=== PATIENT | female | born 1995 | race Hispanic/Latino ===

== ENCOUNTER 2017-10-04 01:36 | Emergency (ER) | payer SELFPAY | END 2017-10-04 02:10 | disposition home or self-care (01) | LOC: EDH 01:36 | DX: Z91.14 Patient's other noncompliance with medication regimen (principal) | CPT/HCPCS: 99281 ==

== ENCOUNTER 2019-05-29 00:22 | Emergency (ER) | payer OTHER ==
[2019-05-29 00:52] LABS: APPEARANCE,URINE Clear (CLEAR); BILIRUBIN,URINE Negative (NEGATIVE); COLOR,URINE Yellow (YELLOW); GLUCOSE, URINE (UA) Negative (NEGATIVE); KETONES,URINE Negative (NEGATIVE); LEUKOCYTE ESTERASE ,URINE Trace (NEGATIVE); NITRATE,URINE Negative (NEGATIVE); OCCULT BLOOD,URINE Negative (NEGATIVE); PH,URINE 5.5 (5.0-8.0); PROTEIN,URINE Negative (NEGATIVE); UROBILINOGEN,URINE 0.2 mg/dL (0.2-1.0)
[2019-05-29 00:56] LABS: HCG,QUAL RESULT NEGATIVE (NEGATIVE)
[2019-05-29 01:04] LABS: BACTERIA,URINE Rare /HPF (None Seen); RBC,URINE 0-1 /HPF (0-1)
[2019-05-29 01:04] LABS: BASOPHILS % (AUTO) 0.9 % (0.0-5.0); EOSINOPHILS % (AUTO) 1.5 % (0.0-8.0); HEMATOCRIT 39.5 % (36-48); LYMPHOCYTES % (AUTO) 29.8 % (21.0-51.0); MEAN CORPUSCULAR HEMOGLOBIN 27.6 pg (27.0-33.0); MEAN CORPUSCULAR HGB CONC 33.1 g/dL (32.0-36.0); MEAN CORPUSCULAR VOLUME 83.5 fL (79-99); MONOCYTES % (AUTO) 5.2 % (3.0-13.0); NEUTROPHILS % (AUTO) 62.6 % (40.0-77.0); PLATELET COUNT (AUTO) 350 K/uL (130-400); RED BLOOD CELL COUNT(AUTO) 4.73 MIL/uL (4.00-5.50); RED CELL DISTRIBUTION WIDTH 15.3 % (11.0-15.5); WHITE BLOOD COUNT (AUTO) 13.5 K/uL (4.8-10.8)
[2019-05-29 01:12] LABS: CREATININE 0.9 mg/dL (0.5-1.5); POTASSIUM 3.7 mmol/L (3.5-5.1)
[2019-05-29 01:16] LABS: ALBUMIN 3.5 g/dL (3.5-5.0); BILIRUBIN,TOTAL 0.2 mg/dL (0.2-1.0); TOTAL PROTEIN, SERUM 8.3 g/dL (6.0-8.3)
[2019-05-29] MEDS ORDERED: METOCLOPRAMIDE 10 MG/2 ML VIAL ONE (01:18)
[2019-05-29] MEDS ORDERED: FAMOTIDINE/PF 20 MG/2 ML VIAL IV ONE (01:19)
[2019-05-29] MEDS ORDERED: ONDANSETRON HCL 4 MG/2 ML VIAL ONE (01:19)
[2019-05-29] MEDS ORDERED: LIDOCAINE HCL 2% VISCOUS 15 ML UDCUP ONE (01:22)
[2019-05-29] MEDS ORDERED: MAG HYDROX/AL HYDROX/SIMETH ES 30 ML SUSP UDCUP ONE (01:22)
== END 2019-05-29 02:16 | disposition home or self-care (01) ==
LOC: EDH 00:22
DX: K29.00 Acute gastritis without bleeding (principal)
CPT/HCPCS: 36415; 80053; 81001; 81025; 83690; 85025; 96374; 96375; 99284; J2405; J2765; J3490; 96372

== ENCOUNTER 2023-06-28 20:13 | Emergency (ER) | payer BC, OTHER ==
[~2023-06-28] VITALS: Ht 167.6 cm; Wt 137.0 kg
[2023-06-28] MEDS ORDERED: AMOX1TAB16 PO (21:40)
[2023-06-28] MEDS ORDERED: IBUP-1493 PO (21:40)
[2023-06-28 22:27] VITALS: BP 123/78; PULSE 78; RESP 16; O2SAT 98
== END 2023-06-28 22:30 | disposition home or self-care (01) ==
LOC: EDH 20:13
DX: L73.2 Hidradenitis suppurativa (principal); Z79.1 Long term (current) use of non-steroidal anti-inflammatories (NSAID)
CPT/HCPCS: 10060

== ENCOUNTER 2024-04-02 22:53 | Emergency (ER) | payer BC ==
[~2024-04-02] VITALS: Ht 167.6 cm; Wt 129.3 kg
[~2024-04-02 22:53] MED LIST: AMOX1TAB16 PO; IBUP-1493 PO
[2024-04-02] MEDS: LIDOCAINE HCL 1% 20 ML VIAL INJ STA (23:25)
[2024-04-02] MEDS ORDERED: CEPH500B PO (23:41)
[2024-04-02] MEDS: BACITRACIN 1 EACH PACKET TP ONE (23:52)
[2024-04-03] MEDS: DIPH,PERTUSS(ACELL),TET VAC/PF 0.5 ML VIAL IM ONE (00:02)
[2024-04-03 00:05] VITALS: BP 138/85; PULSE 76; RESP 16; TEMP 98.4; O2SAT 99
== END 2024-04-03 00:09 | disposition home or self-care (01) ==
LOC: EDH 22:53
DX: L02.415 Cutaneous abscess of right lower limb (principal); Z79.1 Long term (current) use of non-steroidal anti-inflammatories (NSAID); Z79.899 Other long term (current) drug therapy
CPT/HCPCS: 10060; 87070; 87076; 90471; 90715

== ENCOUNTER 2024-05-25 19:46 | Emergency (ER) | payer BC ==
[~2024-05-25] VITALS: Ht 165.1 cm; Wt 132.4 kg
[~2024-05-25 19:46] MED LIST changes: +CEPH500B PO
--- NOTE | 2024-05-25 19:49 | NUR ---
UA CUP PROVIDED
--- NOTE | 2024-05-25 20:01 | ERN ---
ED Note History of Present Illness Stated Complaint: RASH, FEVER Chief Complaint: Skin Rash/Abscess Time Seen by MD: 19:48 Dictation: PATIENT IS A 29-YEAR-OLD MORBIDLY OBESE FEMALE WITH A PAINFUL PERINEAL RASH HE HAS HAD FOR 3-4 DAYS. SHE DENIES FEVER CHILLS NAUSEA VOMITING STATES SHE IS UNSURE TO BE IN A DIABETIC. MOTHER WAS IN THE TRIAGE ROOM WITH ME AT THE TIME, AND WAS THERE WHEN I EXAMINED THE PATIENT'S RECTUM AND PERINEUM. Allergies: Coded Allergies: No Known Allergies (Unverified Allergy, Unknown, 05/29/19) Home Meds Active Scripts Cephalexin Monohydrate (Keflex) 500 Mg Cap, 500 MG PO QID for 7 Days, #28 CAP Prov:MAVERICK DE LEON MD 04/02/24 Ibuprofen (Motrin/Advil) 800 Mg Tab, 800 MG PO TID, #30 TAB Prov:DG ANGEL MD 06/28/23 Amoxicillin/Potassium Clav (Amox Tr-K Clv 875-125 mg Tab) 875 Mg-125 Mg Tablet, 1 EACH PO BID, #20 TAB Prov:DG ANGEL MD 06/28/23 Past Medical History Past Medical History: No Pertinent History Surgical History: None PSYCH History: no pertinent psych hx Family History: Negative Social History: Negative, Lives with family History: Not Applicable (WANT TO GO) LMP: May 20, 2024 RN Note Reviewed/Agreed w/PFSH: Yes Review of System Dictation CONSTITUTIONAL: NEGATIVE EXCEPT FOR HPI HEAD/FACE: NEGATIVE EXCEPT FOR HPI EENT: NEGATIVE EXCEPT FOR HPI RESPIRATORY: NEGATIVE EXCEPT FOR HPI GASTROINTESTINAL/ABDOMINAL: NEGATIVE EXCEPT FOR HPI GENITOURINARY: NEGATIVE EXCEPT FOR HPI PERINEAL RASH MUSCULOSKELETAL: NEGATIVE EXCEPT FOR HPI INTEGUMENTARY: NEGATIVE EXCEPT FOR HPI NEUROLOGICAL/PSYCH: NEGATIVE EXCEPT FOR HPI HEMATOLOGIC/LYMPHATIC: NEGATIVE EXCEPT FOR HPI ALL SYSTEMS NEGATIVE, EXCEPT NOTED ABOVE. 13 POINT REVIEW OF SYSTEMS ASSESSED AND ALL NEGATIVE EXCEPT FOR ABOVE. YEARS AGO Initial Vital Sign VS Vital Signs Date Time Temp Pulse Resp B/P (MAP) Pulse Ox O2 Delivery O2 Flow Rate FiO2 05/25/24 19:47 100.0 122 20 129/84 99 Room Air 05/25/24 21:00 0 21 Physical Exam Dictation VITAL SIGNS REVIEWED PATIENT'S MOTHER IN ROOM WITH THE EXAM. GENERAL APPEARANCE: ALERT, ORIENTED X 3, MODERATE ACUTE DISTRESS, WELL DEVELOPED, NOURISHED. MORBIDLY OBESE HEAD AND FACE: NON-TRAUMATIC. EYES: PERRL, PINK CONJUNCTIVAS, EYELID NO TRAUMA, ANTERIOR CHAMBER WITH ARCUS SENILIS. EARS: PINNAS INTACT AND NO SIGNS OF TRAUMA OR ERYTHEMA EAR CANALS CLEAR AND NO DISCHARGE TM NO ERYTHEMA NOSE: NO DISCHARGE, NO BLEEDING. OROPHARYNX: MOUTH NORMAL, TONGUE PINK, PHARYNX CLEAR,NO ERYTHEMA, TONSILS NO EXUDATES, NO ABSCESSES NOTED, MUCOUS MEMBRANE MOIST NECK: SUPPLE, NON-TENDER, NO THYROMEGALY, NO MASSES, NO JVD, NO BRUITS BREAST:DEFERRED CHEST:NO TENDERNESS, NO CREPITUS, NO PARADOXICAL MOVEMENT, NO RETRACTIONS LUNGS:CLEAR, WELL-VENTILATED, SYMMETRIC, NO RALES, NO WHEEZING, NO RHONCHI, NO STRIDOR, GOOD BREATH SOUNDS BILATERALLY HEART: REGULAR RATE, REGULAR RHYTHM, NO MURMUR, NO GALLOPS VASCULAR: NO PERIPHERAL EDEMA, ABDOMEN: SOFT, POSITIVE BOWEL SOUNDS, NONDISTENDED, NO GUARDING, NONTENDER, NO REBOUND, NO MASSES NO HEPATOMEGALY, NO SPLENOMEGALY, NO FRANCOIS'S SIGN, NO HERNIAS. RECTAL: DEFERRED PERIRECTAL RASH NO INDURATION NO FLUCTUANCE GENITAL: DEFERRED. NEUROLOGICAL: NORMAL SPEECH, MOTOR FUNCTION INTACT, SENSORY FUNCTION INTACT MUSCULOSKELETAL: NECK NONTENDER, FULL RANGE OF MOTION, BACK NONTENDER, FULL RANGE OF MOTION, EXTREMITIES: NONTENDER, FULL RANGE OF MOTION SKIN: COLOR PINK, DRY, NO TURGOR, NO RASH, NO LACERATIONS, NO ABRASIONS, NO CONTUSIONS. LYMPHATIC: DEFERRED Results (Laboratory/Radiology) Laboratory/Radiology Laboratory Tests Test 05/25/24 20:45 White Blood Count 5.8 K/uL (4.8-10.8) Red Blood Count 4.96 MIL/uL (4.00-5.50) Hemoglobin 14.6 g/dL (12.0-16.0) Hematocrit 42.8 % (36-48) Mean Corpuscular Volume 86.3 fL (79-99) Mean Corpuscular Hemoglobin 29.4 pg (27.0-33.0) Mean Corpuscular Hemoglobin Concent 34.1 g/dL (32.0-36.0) Red Cell Distribution Width 13.4 % (11.0-15.5) Platelet Count 310 K/uL (130-400) Mean Platelet Volume 10.4 fL (7.5-10.5) Immature Granulocyte % (Auto) 0.3 % (0-1) Neutrophils (%) (Auto) 71.6 % (40.0-77.0) Lymphocytes (%) (Auto) 19.2 % (21.0-51.0) L Monocytes (%) (Auto) 7.6 % (3.0-13.0) Eosinophils (%) (Auto) 0.3 % (0.0-8.0) Basophils (%) (Auto) 1.0 % (0.0-5.0) Neutrophils # (Auto) 4.1 K/uL (1.8-7.7) Lymphocytes # (Auto) 1.1 K/uL (1.0-4.8) Monocytes # (Auto) 0.4 K/uL (0.1-1.0) Eosinophils # (Auto) 0.02 K/uL (0.00-0.70) Basophils # (Auto) 0.06 K/uL (0.00-0.20) Absolute Immature Granulocyte (auto 0.02 K/uL (0-1) Nucleated Red Blood Cells 0.0 % (0.0-0.19) Sodium Level 136 mmol/L (136-145) Potassium Level 3.7 mmol/L (3.5-5.1) Chloride Level 99 mmol/L (101-111) L Carbon Dioxide Level 27 mmol/L (21-32) Blood Urea Nitrogen 12 mg/dL (7-18) Creatinine 1.1 mg/dL (0.5-1.0) H Glomerular Filtration Rate Calc 70 mL/min (>90) Random Glucose 366 mg/dL (70-105) H Total Calcium 9.3 mg/dL (8.5-10.1) Serum Test, Qualitative NEGATIVE (NEGATIVE) Labs Reviewed?: Yes ED Course ED Course Orders Procedure Category Date Status Time Acetaminophen 500mg PHA 05/25/24 Complete Tab (Tylenol 500mg T 20:00 Cbc With Differential LAB 05/25/24 Complete 19:57 Basic Metabolic Panel LAB 05/25/24 Complete 19:57 Acetaminophen With PHA 05/25/24 Complete Codeine (Tylenol-Code 20:00 Insulin Regular, PHA 05/25/24 Complete Human 3ml (Humulin R 21:30 0.9%Nacl 1000ml (Ns PHA 05/25/24 Complete 1000ml) 21:30 Testing, LAB 05/25/24 Complete Serum Hcg 21:16 Current Medications Medications (Trade) Dose Ordered Sig/Charo Route PRN Reason Start Time Stop Time Status Last Admin Dose Admin Acetaminophen (TYLenol 500MG TAB) 1,000 mg ONCE ONCE PO 05/25/24 20:00 05/25/24 20:01 DC Acetaminophen/ Codeine Phosphate (TYLenol-coDEINE TAB) 2 tab ONCE ONCE PO 05/25/24 20:00 05/25/24 20:01 DC 05/25/24 20:34 Insulin Human Regular (humuLIN R 100 UNIT/ML 3ML) 15 unit ONCE ONCE IV 05/25/24 21:30 05/25/24 21:31 DC 05/25/24 21:48 Sodium Chloride 1,000 ml @ 0 mls/hr ONCE ONCE IV 05/25/24 21:30 05/25/24 21:31 DC 05/25/24 21:39 Vital Signs Date Time Temp Pulse Resp B/P (MAP) Pulse Ox O2 Delivery O2 Flow Rate FiO2 05/25/24 21:00 102.4 115 18 96/50 99 Room Air* 0 21 05/25/24 19:47 100.0 122 20 129/84 99 Room Air 2152, DISCUSSED PATIENT'S LAB FINDINGS AT LENGTH AND SHE IS AWARE SHE HAS A NEW ONSET DIAGNOSIS OF DIABETES. SHE IS AWARE THAT THE RASH IS FUNGAL, WE WILL BE TREATED WITH ANTIVIRALS, WE WILL BE PUT ON METFORMIN A 1000 MG P.O. B.I.D. WITH FOOD SHE STATES SHE WE WILL SEE HER PRIMARY CARE DOCTOR IN [place]. SHE STATES HER FATHER HAS A DIABETIC AND THAT SHE DOES NOT WANT TO HAVE ANY COMPLICATIONS AND WE WILL SEE HER DOCTOR TOMORROW Medical Decision Making MDM MEDICAL DISCHARGE MAKING BASED ON BASIC LABS AND PHYSICAL EXAMINATION. PATIENT HAS A 366 BLOOD SUGAR AND IS A NEW ONSET DIABETIC. RECEIVED1 L NORMAL SALINE AND15 UNITS HUMULIN REGULAR INSULIN. DISCHARGED HOME WITH METFORMIN1 G P.O. B.I.D. WE WILL BE GIVEN DIFLUCAN AND CLOTRIMAZOLE. ALSO SHE IS AWARE I WILL WRITE HER FOR A WEEK SO SHE CAN FOLLOW UP WITH HER DOCTOR. DX & DISP Disposition: Discharge Departure Impression: Primary Impression: New onset type 2 diabetes mellitus Additional Impression: Candidiasis of perineum Condition: Stable Scripts Clotrimazole (Clotrimazole) 1 % Cream..g. 1 APPL TP BID for 7 Days, #15 GM 0 Refills apply to affected area(s) Prov: YADIRA TIERNEY NP 05/25/24 Fluconazole (Diflucan) 200 Mg Tablet 1 TAB PO DAILY for 3 Days, #3 TAB 0 Refills Prov: YADIRA TIERNEY NP 05/25/24 Metformin HCl (Metformin HCl) 1,000 Mg Tablet 1 TAB PO BID for 30 Days, #60 TAB 0 Refills Prov: YADIRA TIERNEY NP 05/25/24 Additional Instructions: FOLLOW-UP WITH PRIMARY CARE PROVIDER IN 1 TO 2 DAYS. TAKE MEDICATIONS DIRECTED HERE IN THE EMERGENCY ROOM. OKAY TO CONTINUE HOME MEDICATIONS UNLESS OTHERWISE DISCUSSED DURING YOUR VISIT IN THE EMERGENCY ROOM TODAY. RETURN TO YOUR NEAREST EMERGENCY ROOM IF SYMPTOMS WORSEN OR IF THERE IS NO IMPROVEMENT. CALL 911 IF YOU NEED IMMEDIATE ASSISTANCE. TAKE TYLENOL OR MOTRIN [id number] NEEDED AND IF NO CONTRAINDICATIONS ARE PRESENT. INCREASE ORAL HYDRATION. A WOUND CULTURE OR URINE CULTURE WAS ORDERED HERE IN THE EMERGENCY ROOM DEPARTMENT PLEASE FOLLOW-UP WITH PRIMARY CARE PROVIDER AND ADVISE THEM TO GET REPEAT PORTS FROM OUR FACILITY. IF YOU HAD ANY JENSEN WRAP/SPLINTS THAT WERE APPLIED HERE, PLEASE DO NOT REMOVE THEM UNTIL YOU SEE YOUR PRIMARY CARE OR SPECIALTY. TAKE METFORMIN DIRECTED TWICE A DAY WITH MEALS. TAKE DIFLUCAN DIRECTED ONCE A DAY FOR THREE DAYS. APPLY CLOTRIMAZOLE TO CLEAN DRY SKIN3 TIMES A DAY FOR SEVEN DAYS NO WORK UNTIL 06/01/2024 AND CLEARED BY YOUR DOCTOR. Referrals: SELF,REFERRAL (PCP) Time of Disposition: 21:56 I have reviewed the case, and I agree with, Diagnosis and Plan YADIRA TIERNEY NP May 25, 2024 20:01
[2024-05-25] MEDS: acetaMINOPHEN 500 MG TABLET PO ONE (20:34)
[2024-05-25] MEDS: acetaMINOPHEN WITH coDEINE 1 TAB TAB PO ONE (20:34)
[2024-05-25 20:53] LABS: BASOPHILS # (AUTO) 0.06 K/uL (0.00-0.20); EOSINOPHILS # (AUTO) 0.02 K/uL (0.00-0.70); EOSINOPHILS % (AUTO) 0.3 % (0.0-8.0); HEMATOCRIT 42.8 % (36-48); IMMATURE GRANULOCYTE ABSOLUTE 0.02 K/uL (0-1); LYMPHOCYTES # (AUTO) 1.1 K/uL (1.0-4.8); LYMPHOCYTES % (AUTO) 19.2 % (21.0-51.0); MEAN CORPUSCULAR HEMOGLOBIN 29.4 pg (27.0-33.0); MEAN CORPUSCULAR HGB CONC 34.1 g/dL (32.0-36.0); MEAN CORPUSCULAR VOLUME 86.3 fL (79-99); MONOCYTES # (AUTO) 0.4 K/uL (0.1-1.0); MONOCYTES % (AUTO) 7.6 % (3.0-13.0); NEUTROPHILS # (AUTO) 4.1 K/uL (1.8-7.7); NEUTROPHILS % (AUTO) 71.6 % (40.0-77.0); PLATELET COUNT (AUTO) 310 K/uL (130-400); RED BLOOD CELL COUNT(AUTO) 4.96 MIL/uL (4.00-5.50); RED CELL DISTRIBUTION WIDTH 13.4 % (11.0-15.5); WHITE BLOOD COUNT (AUTO) 5.8 K/uL (4.8-10.8)
[2024-05-25 21:00] VITALS: BP 96/50; PULSE 115; RESP 18; TEMP 102.3; O2SAT 99
[2024-05-25 21:00] LABS: CREATININE 1.1 mg/dL (0.5-1.0); POTASSIUM 3.7 mmol/L (3.5-5.1)
[2024-05-25] MEDS: 0.9%NACL 1000ML 1,000 ML IV ONE (21:39)
[2024-05-25] MEDS: INSULIN humuLIN R 100 UNIT/ML 3ML IV ONE (21:48)
[2024-05-25] MEDS ORDERED: METF-446 PO (21:58)
[2024-05-25] MEDS ORDERED: CLOT15CR23 TP (21:58)
[2024-05-25] MEDS ORDERED: FLUC200T PO (21:58)
== END 2024-05-25 23:04 | disposition home or self-care (01) ==
LOC: EDH 19:46
DX: B37.31 Acute candidiasis of vulva and vagina (principal); E11.9 Type 2 diabetes mellitus without complications; Z79.1 Long term (current) use of non-steroidal anti-inflammatories (NSAID); Z79.84 Long term (current) use of oral hypoglycemic drugs; Z79.899 Other long term (current) drug therapy
CPT/HCPCS: 99284; 96374; 80048; 84703; 85025; 82948; 36415; J1815; J7030

== ENCOUNTER 2024-05-29 21:10 | Emergency (ER) | payer BC ==
[~2024-05-29] VITALS: Ht 167.6 cm; Wt 126.1 kg
[~2024-05-29 21:10] MED LIST changes: +CLOT15CR23 TP; +FLUC200T PO; +METF-446 PO
[2024-05-29 21:20] VITALS: BP 110/72; PULSE 77; RESP 20; TEMP 98.3
[2024-05-29] MEDS: cefTRIAXone 1G VIAL IVPB ONE (22:11)
[2024-05-29] MEDS: AZITHROMYCIN 250 MG TABLET PO ONE (22:11)
[2024-05-29] MEDS: ondanSETRON 4MG INJ IVP ONE (22:12)
[2024-05-29] MEDS: morPHINE 4 MG SYG IVP ONE (22:12)
--- NOTE | 2024-05-29 22:26 | ERN ---
ED Note History of Present Illness Stated Complaint: VAGINAL RASH Chief Complaint: Skin Rash/Abscess Time Seen by MD: 21:28 Time Seen by Midlevel: 21:28 Dictation: The patient is a 21-year-old female with no past medical history who presents to the emergency department with complaints of pain in erythema to her rectal area onset a week ago. Patient reports she has been to multiple providers and has been receiving antifungal medication but reports no improvement. Patient denies any fevers. Patient does report having two sexual partners and states most of the time she uses protection. Patient denies any vaginal bleeding or discharge. Patient also reports a lesion to her pelvic area. Patient reports she went to [facility] yesterday and was discharged with antibiotics but reports she was unable to get them due to financial issues. Allergies: Coded Allergies: No Known Allergies (Unverified Allergy, Unknown, 05/29/19) Home Meds Active Scripts Clotrimazole (Clotrimazole) 1 % Cream..g., 1 APPL TP BID for 7 Days, #15 GM 0 Refills apply to affected area(s) Prov:YADIRA TIERNEY NP 05/25/24 Fluconazole (Diflucan) 200 Mg Tablet, 1 TAB PO DAILY for 3 Days, #3 TAB 0 Refills Prov:YADIRA TIERNEY NP 05/25/24 Metformin HCl (Metformin HCl) 1,000 Mg Tablet, 1 TAB PO BID for 30 Days, #60 TAB 0 Refills Prov:YADIRA TIERNEY NP 05/25/24 Cephalexin Monohydrate (Keflex) 500 Mg Cap, 500 MG PO QID for 7 Days, #28 CAP Prov:MAVERICK DE LEON MD 04/02/24 Ibuprofen (Motrin/Advil) 800 Mg Tab, 800 MG PO TID, #30 TAB Prov:DG ANGEL MD 06/28/23 Amoxicillin/Potassium Clav (Amox Tr-K Clv 875-125 mg Tab) 875 Mg-125 Mg Tablet, 1 EACH PO BID, #20 TAB Prov:DG ANGEL MD 06/28/23 Past Medical History Past Medical History: No Pertinent History Surgical History: None Family History: Negative Social History: Negative, Lives with family History: Not Applicable LMP: May 20, 2024 RN Note Reviewed/Agreed w/PFSH: Yes Review of System Dictation Constitutional: Negative for fever,chills, and weight loss Eyes: Negative for injury, pain,redness, and discharge ENT: Negative for injury,pain or swelling Cardiovascular: Negative for chest pain, palpitations, and edema Respiratory: Negative for shortness of breath, cough, and wheezing, Abdomen/GI: Negative for abdominal pain, nausea, vomiting, diarrhea, and constipation Back: Negative for injury and pain : Negative for injury, bleeding and discharge positive for rectal lesions MS/Extremity: Negative for injury and deformity Skin: Negative for rash, and discoloration Neuro: Negative for headache, weakness, numbness, tingling, and seizure Psych: Negative for suicide ideation, homicidal ideation, and hallucinations Initial Vital Sign VS Vital Signs Date Time Temp Pulse Resp B/P (MAP) Pulse Ox O2 Delivery O2 Flow Rate FiO2 05/29/24 21:20 98.2 77 20 110/72 98 Room Air Physical Exam Dictation Vital Signs reviewed General Appearance: Alert, oriented x 3, no acute distress, well developed, nourished. Head and Face: non-traumatic. Eyes: PERRL, pink conjunctivas, eyelid no trauma, anterior chamber with arcus senilis. Ears: Pinnas intact and no signs of trauma or erythema ear canals clear and no discharge TM no erythema Nose: No discharge, no bleeding. Oropharynx: Mouth normal, tongue pink. pharynx clear,no erythema, tonsils no exudates, no abscesses noted, mucous membrane moist Neck: Supple, non-tender, no thyromegaly, no masses, no JVD, no bruits Breast:Deferred Chest:No tenderness, no crepitus, no paradoxical movement, no retractions Lungs:Clear, well-ventilated, symmetric, no rales, no wheezing, no rhonchi, no stridor, good breath sounds bilaterally Heart: Regular rate, regular rhythm, no murmur, no gallops Vascular: no peripheral edema, Abdomen: Soft, positive bowel sounds, nondistended, no guarding, nontender, no rebound, no masses no hepatomegaly, no splenomegaly, no Flores's sign, no hernias. Rectal: Erythema surrounding rectum and in between buttocks, multiple ulcerated lesions, no drainage, tender to palpation, no abscess Genital: Small nontender ulceration to suprapubic area, multiple ingrown hair lesions Neurological: Normal speech, motor function intact, sensory function intact Musculoskeletal: Neck nontender, full range of motion, back nontender, full range of motion, Extremities: nontender, full range of motion Skin: Color pink, dry, no turgor, no rash, no lacerations, no abrasions, no contusions. Lymphatic: Deferred Results (Laboratory/Radiology) Laboratory/Radiology Laboratory Tests Test 05/29/24 22:09 05/29/24 22:24 Rapid Plasma Reagin NONREACTIVE (NONREACTIVE) Urine Color LIGHT-YELLOW (YELLOW) Urine Appearance CLOUDY (CLEAR) H Urine pH 5.5 (5.0-8.0) Urine Specific [place] 1.045 (1.001-1.031) Urine Protein NEGATIVE mg/dL (NEGATIVE) Urine Glucose (UA) >=1000 mg/dL (NEGATIVE) H Urine Ketones >=80 mg/dL (NEGATIVE) Urine Occult Blood +- (TRACE) (NEGATIVE) H Urine Nitrate NEGATIVE (NEGATIVE) Urine Bilirubin NEGATIVE mg/dL (NEGATIVE) Urine Urobilinogen 0.2 mg/dL (0.2-1.0) Urine Leukocyte Esterase 250 [place]/uL (NEGATIVE) H Urine RBC 11-25 /HPF (0-1) H Urine WBC 26-50 /HPF (0-1) H Urine Squamous Epithelial Cells MANY /HPF (0-2) Urine Bacteria RARE /HPF (None Seen) Urine HCG, Qualitative NEGATIVE (NEGATIVE) Labs Reviewed?: Yes ED Course ED Course Orders Procedure Category Date Status Time Urinalysis Profile LAB 05/29/24 Complete 21:36 ,Urine Test LAB 05/29/24 Complete 21:36 Chlamydia & Gc Pcr DANDY 05/29/24 In Process 21:57 Rapid Plasma Reagin LAB 05/29/24 Complete 21:57 Treponema Pallidum Ab LAB 05/29/24 In Process Igg-Tppa 21:57 Ceftriaxone 1g Vial PHA 05/29/24 Complete (Rocephine 1g Inj) 22:00 Azithromycin PHA 05/29/24 Complete (Zithromax) 22:00 Morphine 4mg Syg PHA 05/29/24 Complete (Morphine 4mg Syg) 22:00 Ondansetron 4mg Inj PHA 05/29/24 Complete (Zofran 4mg Inj) 22:00 Culture Urine DANDY 05/29/24 In Process 22:47 Current Medications Medications (Trade) Dose Ordered Sig/Charo Route PRN Reason Start Time Stop Time Status Last Admin Dose Admin Azithromycin (Zithromax) 1,000 mg ONCE ONCE PO 05/29/24 22:00 05/29/24 22:01 DC 05/29/24 22:11 Ceftriaxone Sodium (ROCEphine 1G INJ) 1 gm ONCE ONCE IVPB 05/29/24 22:00 05/29/24 22:01 DC 05/29/24 22:11 Morphine Sulfate (morPHINE 4MG SYG) 4 mg ONCE ONCE IVP 05/29/24 22:00 05/29/24 22:01 DC 05/29/24 22:12 Ondansetron HCl (zoFRAN 4MG INJ) 4 mg ONCE ONCE IVP 05/29/24 22:00 05/29/24 22:01 DC 05/29/24 22:12 Vital Signs Date Time Temp Pulse Resp B/P (MAP) Pulse Ox O2 Delivery O2 Flow Rate FiO2 05/29/24 21:20 98.2 77 20 110/72 98 Room Air Medical Decision Making MDM The patient is a 21-year-old female with no past medical history who presents to the emergency department with complaints of pain in erythema to her rectal area onset a week ago. Patient reports she has been to multiple providers and has been receiving antifungal medication but reports no improvement. Patient denies any fevers. Patient does report having two sexual partners and states most of the time she uses protection. Patient denies any vaginal bleeding or discharge. Patient also reports a lesion to her pelvic area. Patient reports she went to [facility] yesterday and was discharged with antibiotics but reports she was unable to get them due to financial issues. Rectum was examined with pollo CHERRY. Patient with multiple ulcerated lesions and erythema surrounding rectum, no abscess noted. Patient will be treated for STI. And will be discharged on antibiotics. Patient also with urinalysis consistent with uti. Patient instructed to follow up with PCP and follow up on culture results. Differential diagnosis: Fungal infection, genital herpes, UTI, sexually transmitted infection, cellulitis Need for hospitalization: Patient does not meet criteria for hospitalization. There are no social concerns with this patient. DX & DISP Disposition: Discharge Departure Impression: Primary Impression: Anal lesion Additional Impression: UTI (urinary tract infection) Condition: Stable Scripts Cephalexin Monohydrate (Keflex) 500 Mg Cap 500 MG PO QID for 7 Days, #28 CAP Prov: NARESHHOA HOLLIDAY 05/29/24 Additional Instructions: Please follow up with primary doctor in 1-2 days for full STI panel. Please follow up on your cultures. Please take antibiotics as prescribed. Please return to ER if symptoms worsen. FOLLOW-UP WITH PRIMARY CARE PROVIDER IN 1 TO 2 DAYS. TAKE MEDICATIONS DIRECTED HERE IN THE EMERGENCY ROOM. OKAY TO CONTINUE HOME MEDICATIONS UNLESS OTHERWISE DISCUSSED DURING YOUR VISIT IN THE EMERGENCY ROOM TODAY. RETURN TO YOUR NEAREST EMERGENCY ROOM IF SYMPTOMS WORSEN OR IF THERE IS NO IMPROVEMENT. CALL 911 IF YOU NEED IMMEDIATE ASSISTANCE. TAKE TYLENOL OR MOTRIN [id number] NEEDED AND IF NO CONTRAINDICATIONS ARE PRESENT. INCREASE ORAL HYDRATION. A WOUND CULTURE OR URINE CULTURE WAS ORDERED HERE IN THE EMERGENCY ROOM DEPARTMENT PLEASE FOLLOW-UP WITH PRIMARY CARE PROVIDER AND ADVISE THEM TO GET REPEAT PORTS FROM OUR FACILITY. IF YOU HAD ANY JENSEN WRAP/SPLINTS THAT WERE APPLIED HERE, PLEASE DO NOT REMOVE THEM UNTIL YOU SEE YOUR PRIMARY CARE OR SPECIALTY. Referrals: SELF,REFERRAL (PCP) Time of Disposition: 23:20 I have reviewed the case, and I agree with, Diagnosis and Plan HOA INFANTE May 29, 2024 22:26
[2024-05-29 22:40] LABS: HCG,QUALITATIVE URINE NEGATIVE (NEGATIVE)
[2024-05-29 22:44] LABS: APPEARANCE,URINE CLOUDY (CLEAR); BILIRUBIN,URINE NEGATIVE (NEGATIVE); COLOR,URINE LIGHT-YELLOW (YELLOW); GLUCOSE, URINE (UA) >=1000 mg/dL (NEGATIVE); KETONES,URINE >=80 mg/dL (NEGATIVE); LEUKOCYTE ESTERASE ,URINE 250 Leu/uL (NEGATIVE); NITRATE,URINE NEGATIVE (NEGATIVE); PH,URINE 5.5 (5.0-8.0); PROTEIN,URINE NEGATIVE (NEGATIVE); UROBILINOGEN,URINE 0.2 mg/dL (0.2-1.0)
[2024-05-29 22:47] LABS: ADD UA MICROSCOPIC YES
[2024-05-29 22:54] LABS: BACTERIA,URINE RARE /HPF (None Seen); MUCUS,URINE RARE LPF (None Seen); SQUAMOUS EPITHELIAL CELL,UR MANY /HPF (0-2); WBC,URINE 26-50 /HPF (0-1)
[2024-05-29] MEDS ORDERED: CEPH500B PO (23:22)
== END 2024-05-29 23:28 | disposition home or self-care (01) ==
LOC: EDH 21:10
DX: K62.89 Other specified diseases of anus and rectum (principal); N39.0 Urinary tract infection, site not specified; Z79.1 Long term (current) use of non-steroidal anti-inflammatories (NSAID); Z79.84 Long term (current) use of oral hypoglycemic drugs
CPT/HCPCS: 99284; 96374; 96375; 86780; 86592; 87086; 87491; 87591; 81001; 81025; 36415; J0696; J2405; J2270

== ENCOUNTER 2024-05-31 09:15 | Emergency (ER) | payer BC ==
[~2024-05-31] VITALS: Ht 167.6 cm; Wt 126.1 kg
[2024-05-31] MEDS ORDERED: ACYC-138 PO (10:15)
[2024-05-31] MEDS ORDERED: ACET-2079 PO (10:15)
--- NOTE | 2024-05-31 10:17 | ERN ---
General Chief Complaint: Skin Rash/Abscess Stated Complaint: RASH Time Seen by MD: 09:22 History of Present Illness Initial Comments 29-year-old female otherwise healthy presents for ulcerative lesions to her vaginal area and rectal area. Symptoms been present for a week or so. No systemic signs or symptoms. No other complaints. Allergies: Coded Allergies: No Known Allergies (Unverified Allergy, Unknown, 05/29/19) Home Meds Active Scripts Cephalexin Monohydrate (Keflex) 500 Mg Cap, 500 MG PO QID for 7 Days, #28 CAP Prov:HOA INFANTE 05/29/24 Clotrimazole (Clotrimazole) 1 % Cream..g., 1 APPL TP BID for 7 Days, #15 GM 0 Refills apply to affected area(s) Prov:YADIRA TIERNEY NP 05/25/24 Fluconazole (Diflucan) 200 Mg Tablet, 1 TAB PO DAILY for 3 Days, #3 TAB 0 Refills Prov:YADIRA TIERNEY NP 05/25/24 Metformin HCl (Metformin HCl) 1,000 Mg Tablet, 1 TAB PO BID for 30 Days, #60 TAB 0 Refills Prov:YADIRA TIERNEY NP 05/25/24 Cephalexin Monohydrate (Keflex) 500 Mg Cap, 500 MG PO QID for 7 Days, #28 CAP Prov:MAVERICK DE LEON MD 04/02/24 Ibuprofen (Motrin/Advil) 800 Mg Tab, 800 MG PO TID, #30 TAB Prov:DG ANGEL MD 06/28/23 Amoxicillin/Potassium Clav (Amox Tr-K Clv 875-125 mg Tab) 875 Mg-125 Mg Tablet, 1 EACH PO BID, #20 TAB Prov:DG ANGEL MD 06/28/23 Past Medical History Past Medical History: No Pertinent History Past Surgical History: None Family History Family History: Negative Social History Social History: Negative, Lives with family Female( History) History: Not Applicable LMP: May 20, 2024 ROS Dictation CONSTITUTIONAL: No chills, no fever, no weakness, no diaphoresis, no malaise. HEAD/FACE: No signs of trauma. EENT: No eye pain, no blurred vision, no tearing, no double vision, no ear pain, no ear discharge, no nose pain, no nasal congestion, no throat pain, no throat swelling, no mouth pain. RESPIRATORY: No cough, no orthopnea, no SOB, no stridor, no wheezing. CARDIOVASCULAR: No chest pain, no edema, no palpitations, no syncope. GASTROINTESTINAL/ABDOMINAL: No abdominal pain, no constipation, no diarrhea, no nausea, no vomiting. GENITOURINARY: No abnormal discharge, no dysuria, no frequent urination, no hematuria. No complaints of pain in the genitals. MUSCULOSKELETAL: No back pain, no gout, no joint pain, no joint swelling, no muscle pain, no muscle stiffness, no neck pain. INTEGUMENTARY: Ulcerative lesions to the rectal area and vaginal area NEUROLOGICAL/PSYCH: No anxiety, not depressed, no emotional problem, no headache, no numbness, no pre-existing deficit, no history of seizures, no tremors, no weakness. HEMATOLOGIC/LYMPHATIC: Not anemic, no history of blood clots, no apparent bleeding, no bruising, glands not swollen. All Systems Negative, Except as Noted. Physical Exam Physical Exam Dictation VITAL SIGNS: Reviewed. GENERAL APPEARANCE: Alert, mild distress due to pain. Obese. HEAD AND FACE: Non-traumatic. EYES: PERRL, pink conjunctivas, eyelid no trauma, anterior chamber clear. EARS: Pinnas intact and no signs of trauma or erythema. Ear canals clear and no discharge. TMs no erythema. NOSE: No discharge, no bleeding. OROPHARYNX: Mouth normal, teeth no caries, tongue pink. Pharynx clear, no erythema. Tonsils no exudates, no abscesses noted. Mucous membrane moist. NECK: Supple, non-tender, no thyromegaly, no masses, no JVD, no bruits. BREAST: Deferred. CHEST: No tenderness, no crepitus, no paradoxical movement, no retractions. LUNGS: Clear, well-ventilated, symmetric, no rales, no wheezing, no rhonchi, no stridor, good breath sounds bilaterally. HEART: Regular rate, regular rhythm, no murmur, no gallops. VASCULAR: No peripheral edema. ABDOMEN: Soft, positive bowel sounds, nondistended, no guarding, nontender, no rebound, no masses no hepatomegaly, no splenomegaly, no Flores's sign, no hernias. RECTAL: Ulcerative lesions GENITAL: Ulcerative lesions NEUROLOGICAL: Normal speech, gross motor function intact, gross sensory function intact. MUSCULOSKELETAL: Neck nontender, full range of motion, back nontender, full r annabel of motion. EXTREMITIES: Nontender, full range of motion. SKIN: Color pink, dry, no turgor, no rash, no lacerations, no abrasions, no contusions. LYMPHATICS: Deferred. MDM CC: Ulcerative lesions to rectal area and vaginal area x1 week Historian: Patient Comorbidities: None Differential diagnosis includes herpes, STD, other. No labs or imaging indicated. HCG negative. Symptoms consistent with herpes. We will discharge with acyclovir, Tylenol three for pain. We will discharge recommend PCP follow up. ED Course Orders Procedure Category Date Status Time ,Urine Test LAB 05/31/24 Logged 09:36 Urinalysis Profile LAB 05/31/24 Logged 09:36 Vital Signs Date Time Temp Pulse Resp B/P (MAP) Pulse Ox O2 Delivery O2 Flow Rate FiO2 05/31/24 09:17 98.1 98 16 134/87 98 Room Air DX & DISP Disposition: Discharge Departure Condition: Stable Scripts Acetaminophen with Codeine (Acetaminophen-Cod #3 Tablet) 300 Mg-30 Mg Tablet 1 TAB PO Q6HPRN PRN for pain for 5 Days, #20 TAB 0 Refills Prov: KARLI BARBOZA DO 05/31/24 Acyclovir (Acyclovir) 800 Mg Tablet 1 TAB PO 5XDAY for 10 Days, #50 TAB 0 Refills Prov: KARLI BARBOZA DO 05/31/24 Additional Instructions: Your symptoms are consistent with herpes simplex. This is caused by the HSV2 virus. I have prescribed acyclovir, which is an antiviral medication. Please take as prescribed. This medication has been shown to shorten the duration of the outbreak and reduce pain and prevent complications. For pain, you can take 800 mg of ibuprofen up to 3 times a day. This medication is [id number]. I have also prescribed Tylenol with codeine. You can take this up to 4 times a day as needed for significant pain. Keep the area clean and dry. Wash with mild soap and water. Pat the area dry gently with a clean towel or allowed to air dry. Wear loose, breathable clothing and avoid tight or synthetic fabrics. You can take warm Sitz bath to sooth discomfort. You can apply cool compresses as needed. During an active outbreak, avoid direct skin to skin contact especially intermittent or sexual contact. Avoid sharing personal items. I recommend he follow up with the primary doctor. You may need further treatment or studies. Referrals: NONE (PCP) KARLI BARBOZA DO May 31, 2024 10:17
[2024-05-31 10:24] LABS: HCG,QUALITATIVE URINE NEGATIVE (NEGATIVE)
[2024-05-31 10:29] VITALS: BP 112/61; PULSE 91; RESP 17; TEMP 98; O2SAT 96
[2024-05-31 10:29] LABS: ADD UA MICROSCOPIC YES
[2024-05-31 10:30] LABS: APPEARANCE,URINE CLEAR (CLEAR); BILIRUBIN,URINE NEGATIVE (NEGATIVE); COLOR,URINE LIGHT-YELLOW (YELLOW); GLUCOSE, URINE (UA) >=1000 mg/dL (NEGATIVE); KETONES,URINE 60 mg/dL (NEGATIVE); LEUKOCYTE ESTERASE ,URINE 25 Leu/uL (NEGATIVE); MUCUS,URINE RARE LPF (None Seen); NITRATE,URINE NEGATIVE (NEGATIVE); OCCULT BLOOD,URINE NEGATIVE (NEGATIVE); PROTEIN,URINE NEGATIVE (NEGATIVE); SQUAMOUS EPITHELIAL CELL,UR FEW /HPF (0-2); UROBILINOGEN,URINE 0.2 mg/dL (0.2-1.0)
== END 2024-05-31 10:58 | disposition home or self-care (01) ==
LOC: EDH 09:15
DX: L98.499 Non-pressure chronic ulcer of skin of other sites with unspecified severity (principal); Z79.1 Long term (current) use of non-steroidal anti-inflammatories (NSAID); Z79.84 Long term (current) use of oral hypoglycemic drugs
CPT/HCPCS: 81001; 81025; 87086; 99283

== ENCOUNTER 2024-06-03 17:02 | Emergency (ER) | payer BC ==
[~2024-06-03] VITALS: Ht 167.6 cm; Wt 123.0 kg
[~2024-06-03 17:02] MED LIST changes: +ACET-2079 PO; +ACYC-138 PO
[2024-06-03 17:03] VITALS: TEMP 98.9
--- NOTE | 2024-06-03 19:04 | ERN ---
ED Note History of Present Illness Stated Complaint: SKIN PROBLEM Chief Complaint: Skin Problem Time Seen by MD: 17:13 Time Seen by Midlevel: 17:13 Dictation: Patient is a 29-year-old female with no past medical history who presents to the emergency department with complaints of a bleeding from rectal wounds. Patient was recently diagnosed with a herpes. Reports taking medication treatments. Reports pain have improved. Patient reports a one episode of bleeding from wounds onset today. Denies any other complaints. Allergies: Coded Allergies: No Known Allergies (Unverified Allergy, Unknown, 05/29/19) Home Meds Active Scripts Acetaminophen with Codeine (Acetaminophen-Cod #3 Tablet) 300 Mg-30 Mg Tablet, 1 TAB PO Q6HPRN PRN for pain for 5 Days, #20 TAB 0 Refills Prov:KARLI BARBOZA DO 05/31/24 Acyclovir (Acyclovir) 800 Mg Tablet, 1 TAB PO 5XDAY for 10 Days, #50 TAB 0 Refills Prov:KARLI BARBOZA DO 05/31/24 Cephalexin Monohydrate (Keflex) 500 Mg Cap, 500 MG PO QID for 7 Days, #28 CAP Prov:HOA INFANTE 05/29/24 Clotrimazole (Clotrimazole) 1 % Cream..g., 1 APPL TP BID for 7 Days, #15 GM 0 Refills apply to affected area(s) Prov:YADIRA TIERNEY NP 05/25/24 Fluconazole (Diflucan) 200 Mg Tablet, 1 TAB PO DAILY for 3 Days, #3 TAB 0 Refills Prov:YADIRA TIERNEY NP 05/25/24 Metformin HCl (Metformin HCl) 1,000 Mg Tablet, 1 TAB PO BID for 30 Days, #60 TAB 0 Refills Prov:YADIRA TIERNEY NP 05/25/24 Cephalexin Monohydrate (Keflex) 500 Mg Cap, 500 MG PO QID for 7 Days, #28 CAP Prov:MAVERICK DE LEON MD 04/02/24 Ibuprofen (Motrin/Advil) 800 Mg Tab, 800 MG PO TID, #30 TAB Prov:DG ANGEL MD 06/28/23 Amoxicillin/Potassium Clav (Amox Tr-K Clv 875-125 mg Tab) 875 Mg-125 Mg Tablet, 1 EACH PO BID, #20 TAB Prov:DG ANGEL MD 06/28/23 Past Medical History Past Medical History: No Pertinent History Surgical History: None Family History: Negative Social History: Negative, Lives with family History: Not Applicable LMP: May 20, 2024 : 0 Para: 0 Aborts: 0 RN Note Reviewed/Agreed w/PFSH: Yes Review of System Dictation Constitutional: Negative for fever,chills, and weight loss Eyes: Negative for injury, pain,redness, and discharge ENT: Negative for injury,pain or swelling Cardiovascular: Negative for chest pain, palpitations, and edema Respiratory: Negative for shortness of breath, cough, and wheezing, Abdomen/GI: Negative for abdominal pain, nausea, vomiting, diarrhea, and constipation Back: Negative for injury and pain : Negative for injury, bleeding and discharge MS/Extremity: Negative for injury and deformity Skin: Negative for rash, and discoloration. Positive for anal wounds Neuro: Negative for headache, weakness, numbness, tingling, and seizure Psych: Negative for suicide ideation, homicidal ideation, and hallucinations Initial Vital Sign VS Vital Signs Date Time Temp Pulse Resp B/P (MAP) Pulse Ox O2 Delivery O2 Flow Rate FiO2 06/03/24 17:03 99.0 95 16 120/75 98 Room Air* 0 21 Physical Exam Dictation Vital Signs reviewed General Appearance: Alert, oriented x 3, no acute distress, well developed, nourished. Head and Face: non-traumatic. Eyes: PERRL, pink conjunctivas, eyelid no trauma, anterior chamber with arcus senilis. Ears: Pinnas intact and no signs of trauma or erythema ear canals clear and no discharge TM no erythema Nose: No discharge, no bleeding. Oropharynx: Mouth normal, tongue pink. pharynx clear,no erythema, tonsils no exudates, no abscesses noted, mucous membrane moist Neck: Supple, non-tender, no thyromegaly, no masses, no JVD, no bruits Breast:Deferred Chest:No tenderness, no crepitus, no paradoxical movement, no retractions Lungs:Clear, well-ventilated, symmetric, no rales, no wheezing, no rhonchi, no stridor, good breath sounds bilaterally Heart: Regular rate, regular rhythm, no murmur, no gallops Vascular: no peripheral edema, Abdomen: Soft, positive bowel sounds, nondistended, no guarding, nontender, no rebound, no masses no hepatomegaly, no splenomegaly, no Flores's sign, no hernias. Rectal: Deferred Genital: Scant bleeding from anal ulcers Neurological: Normal speech, motor function intact, sensory function intact Musculoskeletal: Neck nontender, full range of motion, back nontender, full range of motion, Extremities: nontender, full range of motion Skin: Color pink, dry, no turgor, no rash, no lacerations, no abrasions, no contusions. Lymphatic: Deferred Results (Laboratory/Radiology) Labs Reviewed?: Yes ED Course ED Course Orders Procedure Category Date Status Time Morphine 4mg Syg PHA 06/03/24 Complete (Morphine 4mg Syg) 18:30 Ondansetron Odt 4mg PHA 06/03/24 Complete Tab (Zofran 4mg Odt) 18:30 Current Medications Medications (Trade) Dose Ordered Sig/Charo Route PRN Reason Start Time Stop Time Status Last Admin Dose Admin Morphine Sulfate (morPHINE 4MG SYG) 4 mg ONCE ONCE IM 06/03/24 18:30 06/03/24 18:31 DC 06/03/24 19:28 Ondansetron HCl (zoFRAN 4MG ODT) 4 mg ONCE ONCE SL 06/03/24 18:30 06/03/24 18:31 DC 06/03/24 19:24 Vital Signs Date Time Temp Pulse Resp B/P (MAP) Pulse Ox O2 Delivery O2 Flow Rate FiO2 06/03/24 20:00 85 18 124/72 98 Room Air* 0 21 06/03/24 17:03 99.0 97 16 120/75 98 Room Air 0 06/03/24 17:03 99.0 95 16 120/75 98 Room Air* 0 21 Medical Decision Making MDM Patient is a 29-year-old female with no past medical history who presents to the emergency department with complaints of a bleeding from rectal wounds. Patient was recently diagnosed with a herpes. Reports taking medication treatments. Reports pain have improved. Patient reports a one episode of bleeding from wounds onset today. Denies any other complaints. Patient with bleeding from ulceration., scant bleeding. Patient in no distress will be discharged to follow up with PCP. Patient already on treatment for herpes. Differential diagnosis: Open wounds, herpes, cellulitis Need for hospitalization: Patient does not meet criteria for hospitalization. There are no social concerns with this patient. DX & DISP Disposition: Discharge Departure Impression: Primary Impression: Genital herpes Additional Impression: Anal lesion Condition: Stable Additional Instructions: FOLLOW-UP WITH PRIMARY CARE PROVIDER IN 1 TO 2 DAYS. TAKE MEDICATIONS DIRECTED HERE IN THE EMERGENCY ROOM. OKAY TO CONTINUE HOME MEDICATIONS UNLESS OTHERWISE DISCUSSED DURING YOUR VISIT IN THE EMERGENCY ROOM TODAY. RETURN TO YOUR NEAREST EMERGENCY ROOM IF SYMPTOMS WORSEN OR IF THERE IS NO IMPROVEMENT. CALL 911 IF YOU NEED IMMEDIATE ASSISTANCE. TAKE TYLENOL OR MOTRIN [id number] NEEDED AND IF NO CONTRAINDICATIONS ARE PRESENT. INCREASE ORAL HYDRATION. A WOUND CULTURE OR URINE CULTURE WAS ORDERED HERE IN THE EMERGENCY ROOM DEPARTMENT PLEASE FOLLOW-UP WITH PRIMARY CARE PROVIDER AND ADVISE THEM TO GET REPEAT PORTS FROM OUR FACILITY. IF YOU HAD ANY JENSEN WRAP/SPLINTS THAT WERE APPLIED HERE, PLEASE DO NOT REMOVE THEM UNTIL YOU SEE YOUR PRIMARY CARE OR SPECIALTY. Referrals: KIMBERLY PATEL (PCP) Time of Disposition: 20:29 I have reviewed the case, and I agree with, Diagnosis and Plan ATTESTATION BY PHYSICIAN I PERFORMED THE SUBSTANTIVE PORTION OF THE VISIT. I HAVE REVIEWED AND PERSONALLY MADE AND APPROVED THE MANAGEMENT PLAN THAT IS DOCUMENTED IN THE NOTE BY MYSELF FOR THE A PP. I ACKNOWLEDGED FOR RESPONSIBILITY FOR THE PATIENT'S MANAGEMENT PLAN. HOA INFANTE Jun 03, 2024 19:04 MAVERICK DE LEON MD Jun 04, 2024 04:59
[2024-06-03] MEDS: ondanSETRON ODT 4MG TAB SL ONE (19:24)
[2024-06-03] MEDS: morPHINE 4 MG SYG IM ONE (19:28)
[2024-06-03 20:00] VITALS: BP 124/72; PULSE 85; RESP 18; O2SAT 98
== END 2024-06-03 20:51 | disposition home or self-care (01) ==
LOC: EDH 17:02
DX: A60.09 Herpesviral infection of other urogenital tract (principal); K62.9 Disease of anus and rectum, unspecified; Z79.1 Long term (current) use of non-steroidal anti-inflammatories (NSAID); Z79.84 Long term (current) use of oral hypoglycemic drugs
CPT/HCPCS: 99284; 96372; J2270